=== PATIENT | female | born 1985 | race Caucasian/White ===

== ENCOUNTER 2017-06-28 06:52 | Day surgery (SDC) | payer OTHER ==
[2017-06-24 15:06] VITALS: BMI 31.1
[2017-06-28] MEDS ORDERED: LIDOCAINE HCL 1%, 10 MG/ML (20ML VIAL) ONE (07:34)
[2017-06-28] MEDS ORDERED: MIDAZOLAM HCL 2 MG/2 ML SINGLE DOSE VIAL ONE ×2 (08:16)
[2017-06-28] MEDS ORDERED: ACETAMINOPHEN INJECTION 100 ML IVPB ONE (08:21)
[2017-06-28] MEDS ORDERED: LIDOCAINE HCL 1%, 10 MG/ML (20ML VIAL) NR ONE ×2 (09:01)
[2017-06-28] MEDS ORDERED: LEVOFLOXACIN IVPB ONE (09:04)
[2017-06-28] MEDS ORDERED: DEXAMETHASONE SOD PHOSPHATE 4 MG/1 ML VIAL ONE (09:04)
[2017-06-28] MEDS ORDERED: oxyCODONE HCL 5 MG TABLET PO PRN ×2 (09:30)
[2017-06-28] MEDS ORDERED: ONDANSETRON 4 MG/2 ML VIAL IVPUSH PRN (09:30)
[2017-06-28] MEDS ORDERED: LACTATED RINGERS SOLUTION 1,000 ML IV SCH (09:30)
[2017-06-28] MEDS ORDERED: ONDANSETRON 4 MG/2 ML VIAL IVPUSH ONE (09:30)
[2017-06-28 11:14] VITALS: TEMP 98.2
[2017-06-28] MEDS ORDERED: oxyCODONE HCL 5 MG TABLET PO ONE (11:30)
[2017-06-28] MEDS ORDERED: oxyCODONE HCL 5 MG TABLET ONE (11:33)
[2017-06-28 12:33] VITALS: BP 110/60; PULSE 80
--- NOTE | 2017-06-28 13:39 | OP ---
DATE OF OPERATION: 06/28/2017 PREOPERATIVE DIAGNOSIS: Left breast mass. POSTOPERATIVE DIAGNOSIS: Left breast mass. PROCEDURE: Excision of left breast mass. SURGEON: Elva Burger MD ANESTHESIA: General. ESTIMATED BLOOD LOSS: Minimal. COMPLICATIONS: None. DISPOSITION: Stable . The patient presented with a palpable mass in the tail of the left breast that was tender and bigger to her. We discussed the options and we decided we would go ahead with an excisional biopsy. The procedure was discussed with all the questions answered. PROCEDURE IN DETAIL: The patient was brought to [facility] in [place], taken into the operating room, and after induction of general anesthesia, the left breast was prepped and draped in the usual sterile fashion. The area in the left axillary tail was anesthetized with 1% lidocaine. An incision was made and the mass was removed en bloc. On removing this, I noticed a lot of what appeared to be milky fluid, so the mass might have been an oil cyst that basically ruptured. I excised this whole thing anyway and sent it to Pathology for permanent section. Hemostasis was assured with electrocautery. The incision was closed in a routine fashion with interrupted 3-0 Vicryl and running 4-0 Monocryl. A sterile dressing with Tegaderm and 4 x 4's was applied. She tolerated the procedure well, was extubated on the operating room table, and taken to recovery in good condition. ELVA BURGER M.D. HEENA/[id number]
--- NOTE | 2017-06-29 19:15 | PATH ---
Surgical Pathology Report Patient Name: FREDERICK RICHARDS [facility]. Rec. #: [id number] /Age/Gender: 1985 (Age: 32) / F Account: [id number] Location: [facility] SURGICAL Taken: 06/28/2017 Received: 06/28/2017 Reported: 06/29/2017 Physicians: Elva Barreto M.D. Specimen(s) Received LEFT BREAST MASS Clinical History None given Final Diagnosis BREAST, LEFT, MASS, EXCISION: BENIGN BREAST TISSUE WITH STROMAL FIBROSIS, ADENOSIS, AND FAT NECROSIS WITH ASSOCIATED DENSE FIBROSIS AND MICROCALCIFICATIONS. Electronically Signed Maria Alejandra Aviles M.D. Gross Description Received in formalin labeled "left breast mass," is a 3.5 x 3.3 x 1.3 cm irregular, unoriented portion of fibroadipose tissue. There is no needle localization wire present. There is no skin or nipple present. The specimen is inked black and serially sectioned. Sectioning reveals a 2.3 cm in greatest dimension intact cystic lesion. [employer] sections, including the entire cystic lesion, are sequentially submitted in 6 cassettes. Total formalin fixation time: Approximately 6 hours DL/06/28/201706/28/2017
== END 2017-06-28 12:25 | disposition home or self-care (01) ==
LOC: JASU-SURG 06:52
PROVIDERS: ATTEND Surgery
PROC: 0HBU0ZX Excision of Left Breast, Open Approach, Diagnostic (ICD-10-PCS; principal; 2017-06-28 08:00)
DX: D24.2 Benign neoplasm of left breast (principal)
CPT/HCPCS: 84703; 88307-TC; 94760